=== PATIENT | female | born 1940 | race Caucasian/White ===

== ENCOUNTER 2020-11-06 12:48 | Inpatient (IN) | payer SELFPAY ==
[~2020-11-06] VITALS: Ht 157.5 cm; Wt 61.0 kg
--- NOTE | 2020-11-06 13:22 | NUR ---
TO ROOM FROM LOBBY. NAD.
[2020-11-06] MEDS ORDERED: SODIUM CHLORIDE 0.9%, 500ML IVBOLUS ONE (13:30)
[2020-11-06 13:36] LABS: BASOPHILS % (AUTO) 1 % (0-1); EOSINOPHILS % (AUTO) 1 % (1-7); LYMPHOCYTES % (AUTO) 16 % (22-44); MEAN CORPUSCULAR HEMOGLOBIN 31.2 pg (27.0-34.8); MEAN CORPUSCULAR HGB CONC 33.2 g/dL (32.4-35.8); MEAN PLATELET VOLUME 8.7 fL (7.4-10.4); MONOCYTES % (AUTO) 5 % (2-9); NEUTROPHILS % (AUTO) 77 % (42-75); PLATELET COUNT 269 x10^3/uL (130-400); RED CELL DISTRIBUTION WIDTH 14.1 % (9.6-15.2)
--- NOTE | 2020-11-06 13:42 | NUR ---
Break RN: pt in [facility], block captain student Shailesh at bedside initiating IV access, pt in [facility], fish drier at bedside.
[2020-11-06 13:44] LABS: ALANINE AMINOTRANSFERASE 13 U/L (12-78); ALBUMIN 3.9 g/dL (3.4-5.0); ANION GAP 14 mmol/L (5-15); CHLORIDE 109 mmol/L (98-107)
[2020-11-06 13:49] LABS: ALKALINE PHOSPHATASE 87 U/L (45-117); CREATININE 1.07 mg/dL (0.55-1.02); TOTAL PROTEIN 8.8 g/dL (6.4-8.2); TROPONIN I 0.066 ng/mL (0.000-0.045)
--- NOTE | 2020-11-06 14:51 | NUR ---
[phone] (Silvio) , please call for any updates
[2020-11-06 16:14] VITALS: BP 140/79
[2020-11-06] MEDS ORDERED: BUTALB/APAP/CAFFEINE 50MG/325MG/40MG PO PRN ×2 (16:30)
[2020-11-06] MEDS ORDERED: hydrALAzine 20 MG/ML, 1ML IVPush PRN (16:30)
[2020-11-06] MEDS ORDERED: ACETAMINOPHEN 325 MG TABLET PO PRN (16:30)
[2020-11-06] MEDS ORDERED: DILTIAZEM 5 MG/ML, 5ML IVPush PRN (16:30)
[2020-11-06] MEDS ORDERED: ENALAPRILAT 1.25 MG/ML, 2ML IVPush PRN (16:30)
[2020-11-06] MEDS ORDERED: ONDANSETRON 2MG/ML, 2ML IVPush PRN (16:30)
[2020-11-06] MEDS ORDERED: LACTATED RINGERS 1,000 ML IV ONE (16:30)
[2020-11-06] MEDS ORDERED: ONDANSETRON ODT 4 MG PO PRN (16:30)
[2020-11-06] MEDS ORDERED: GABA-826 PO (16:42)
[2020-11-06] MEDS ORDERED: NIFE30TA13 PO (16:42)
[2020-11-06] MEDS ORDERED: ATEN100T PO (16:42)
[2020-11-06] MEDS ORDERED: LISI20TA21 PO (16:42)
[2020-11-06] MEDS ORDERED: ATENOLOL 100 MG TABLET PO SCH (17:07)
[2020-11-06] MEDS: LISINOPRIL 20 MG TABLET PO SCH (17:21)
[2020-11-06] MEDS: niFEDipine ER 30 MG TABLET.ER PO SCH (17:21)
[2020-11-06] MEDS: ENOXAPARIN 40 MG/0.4 ML SQ SCH (17:22)
[2020-11-06] MEDS: BACLOFEN 10 MG TABLET PO PRN (18:10)
[2020-11-06 19:00] VITALS: BP 110/75
[2020-11-06 19:00] LABS: MICROSCOPIC INDICATED
[2020-11-06] MEDS: GABAPENTIN 100 MG CAPSULE PO SCH (20:21)
[2020-11-06] MEDS: MELATONIN 5 MG TABLET PO SCH ×2 (20:21→23:12)
[2020-11-06] MEDS: LACTULOSE 10 GM/15 ML UDC PO SCH (20:21)
[2020-11-06 20:44] LABS: TROPONIN I 0.084 ng/mL (0.000-0.045)
[2020-11-06] MEDS ORDERED: MAGNESIUM SULFATE 3 GM in SODIUM CHLORIDE 0.9% 100 ML IV ONE (23:00)
[2020-11-07 00:07] VITALS: BP 107/71
[2020-11-07 02:43] LABS: BASOPHILS % (AUTO) 1 % (0-1); EOSINOPHILS % (AUTO) 1 % (1-7); LYMPHOCYTES % (AUTO) 19 % (22-44); MEAN CORPUSCULAR HEMOGLOBIN 31.1 pg (27.0-34.8); MEAN CORPUSCULAR HGB CONC 32.9 g/dL (32.4-35.8); MEAN PLATELET VOLUME 8.9 fL (7.4-10.4); MONOCYTES % (AUTO) 6 % (2-9); NEUTROPHILS % (AUTO) 74 % (42-75); PLATELET COUNT 173 x10^3/uL (130-400); RED BLOOD COUNT 3.58 x10^6/uL (3.82-5.3); RED CELL DISTRIBUTION WIDTH 14.2 % (9.6-15.2)
[2020-11-07 02:55] LABS: ALANINE AMINOTRANSFERASE 11 U/L (12-78); ALBUMIN 2.8 g/dL (3.4-5.0); ANION GAP 14 mmol/L (5-15); CALCIUM 9.7 mg/dL (8.5-10.1); CHLORIDE 109 mmol/L (98-107); CREATININE 0.76 mg/dL (0.55-1.02)
[2020-11-07 03:04] LABS: ALKALINE PHOSPHATASE 60 U/L (45-117); BILIRUBIN,TOTAL 0.8 mg/dL (0.2-1.0); TOTAL PROTEIN 6.7 g/dL (6.4-8.2)
[2020-11-07 03:21] LABS: TROPONIN I 0.055 ng/mL (0.000-0.045)
[2020-11-07] MEDS: LACTULOSE 10 GM/15 ML UDC PO SCH (06:46)
[2020-11-07] MEDS ORDERED: REGADENOSON 0.4 MG/5 ML SYRINGE ONE ×2 (07:40→10:08)
[2020-11-07] MEDS ORDERED: CEFTRIAXONE 1,000 MG in DEXTROSE 5% 50 ML IVPB SCH (08:00)
[2020-11-07] MEDS: niFEDipine ER 30 MG TABLET.ER PO SCH (09:02)
[2020-11-07] MEDS: GABAPENTIN 100 MG CAPSULE PO SCH ×2 (09:13→16:06)
[2020-11-07] MEDS: LISINOPRIL 20 MG TABLET PO SCH (09:14)
[2020-11-07 09:32] VITALS: BP 122/78
[2020-11-07] MEDS: BACLOFEN 10 MG TABLET PO PRN (12:25)
[2020-11-07 13:20] VITALS: BP 113/75
[2020-11-07] MEDS: ENOXAPARIN 40 MG/0.4 ML SQ SCH (16:06)
== END 2020-11-07 17:16 | disposition home or self-care (01) | DRG 310 ==
LOC: ED 15:16 → EDIP 15:27 → 5SO 15:41
PROVIDERS: ADMIT Family Medicine; ATTEND Family Medicine
DX: I47.1 Supraventricular tachycardia (principal); I10 Essential (primary) hypertension; E86.0 Dehydration; Z66 Do not resuscitate; R77.8 Other specified abnormalities of plasma proteins; R07.89 Other chest pain; R47.81 Slurred speech; G62.9 Polyneuropathy, unspecified
CPT/HCPCS: 36415; 70450; 71045; 78452; 80053; 81001; 83735; 84100; 84484; 85025; 87077; 87086; 87186; 93005; 96360; 99285; G0378; J0696; J1650; J2785; J3475; A9502; J7040; J7120